=== PATIENT | female | born 1955 | race American Indian/Alaskan Native ===

== ENCOUNTER 2018-02-06 07:38 | Day surgery (SDC) | payer MEDICARE ==
--- NOTE | 2018-02-06 09:00 | CP.SDSHP ---
Same Day Surgery H & P - History Proposed Procedure: colonoscopy - Previous Medical/Surgical History Cardiac: Hypertension Endocrine/Metabolic: Diabetes Neuro: TIA/CVA Comments: bilateral knee replacement - Allergies Allergies: Allergies No Known Allergies Allergy (Verified 02/06/18 08:39) - Date & Time Date: 02/06/18 Time: 08:59 Short Stay Discharge - Short Stay Discharge Admitting Diagnosis/Reason for Visit: SCREENING Disposition: HOME/ ROUTINE
[2018-02-06 09:11] VITALS: BMI 32.2
[2018-02-06] MEDS ORDERED: Propofol 10 mg/ml Inj (20 ML) ONE ×2 (09:53→10:05)
[2018-02-06 10:46] VITALS: TEMP 97.6
[2018-02-06 10:59] VITALS: PULSE 63; RESP 18
[2018-02-06 11:41] VITALS: BP 129/81; O2SAT 99
== END 2018-02-06 11:35 | disposition home or self-care (01) ==
LOC: C.ENDO 07:38
PROVIDERS: ATTEND Colon & Rectal Surgery
DX: K63.5 Polyp of colon (principal); Z12.11 Encounter for screening for malignant neoplasm of colon; E11.9 Type 2 diabetes mellitus without complications; I10 Essential (primary) hypertension; Z86.73 Personal history of transient ischemic attack (TIA), and cerebral infarction without residual deficits
CPT/HCPCS: 45380; 82948; 88305; J2001; J2704